=== PATIENT | male | born 1950 | race African-American/Black ===

== ENCOUNTER 2018-10-12 12:42 | Emergency (ER) | payer OTHER ==
[~2018-10-12] VITALS: Ht 177.8 cm; Wt 88.0 kg
[~2018-10-12 12:42] MED LIST: CAPTOPRIL50 MG; CLEOCIN HCL300 MG PO; DICLOFENAC SODI50 MG PO; ECOTRIN81 MG; METFORMIN HYDRO25 GM; METOPROLOL SUCC50 MG; NORVASC5 MG; PRILOSEC10 M2; TRILIPIX135 MG
[2018-10-12] MEDS ORDERED: PRAVASTATIN SOD20 MG PO (13:40)
[2018-10-12] MEDS ORDERED: GLIMEPIRIDE4 MG PO (13:41)
== END 2018-10-12 16:18 | disposition home or self-care (01) ==
LOC: ER 12:42
DX: M75.81 Other shoulder lesions, right shoulder (principal)

== ENCOUNTER 2021-02-19 15:33 | Emergency (ER) | payer OTHER ==
[~2021-02-19] VITALS: Ht 177.8 cm; Wt 88.0 kg
[~2021-02-19 15:33] MED LIST changes: +GLIMEPIRIDE4 MG PO; +PRAVASTATIN SOD20 MG PO
[2021-02-19] MEDS ORDERED: CARAFATE1 GM PO (23:18)
[2021-02-19] MEDS ORDERED: CIPRO500 MG PO (23:18)
[2021-02-19] MEDS ORDERED: PEPCID AC20 MG PO (23:18)
[2021-02-19] MEDS ORDERED: PROTONIX20 MG PO (23:18)
== END 2021-02-19 23:24 | disposition home or self-care (01) ==
LOC: ER 15:33
DX: R10.9 Unspecified abdominal pain (principal); E11.9 Type 2 diabetes mellitus without complications; I10 Essential (primary) hypertension; Z79.84 Long term (current) use of oral hypoglycemic drugs

== ENCOUNTER 2023-09-06 09:51 | Outpatient (CLI) | payer OTHER ==
[~2023-09-06 09:51] MED LIST changes: +CARAFATE1 GM PO; +CIPRO500 MG PO; +PEPCID AC20 MG PO; +PROTONIX20 MG PO
== END 2023-09-06 09:59 | disposition home or self-care (01) ==
LOC: TOM 09:51
DX: C34.32 Malignant neoplasm of lower lobe, left bronchus or lung (principal)
CPT/HCPCS: 71260; Q9965